=== PATIENT | female | born 1980 | race Caucasian/White ===

== ENCOUNTER 2017-01-03 23:40 | Emergency (ER) | payer BC, MEDICAID ==
[~2017-01-03] VITALS: Ht 160 cm; Wt 70.0 kg
[~2017-01-03 23:40] MED LIST: IOHEXOL-300 100 ML BOTTLE ONE; SODIUM CHLORIDE 0.9% 10ML VIAL ONE
[2017-01-04] MEDS ORDERED: MORPHINE SULFATE 4 MG/ML CPJ (NOT FOR IM USE) IV STA (00:36)
[2017-01-04] MEDS ORDERED: ONDANSETRON HCL 4MG/2ML VIAL IV STA (00:36)
[2017-01-04] MEDS ORDERED: SODIUM CHLORIDE 0.9% 1,000 ML IV ONE (00:36)
[2017-01-04 00:58] LABS: CLARITY URINE CLEAR (CLEAR); COLOR URINE YELLOW (YELLOW); GLUCOSE URINE NEGATIVE (NEGATIVE); KETONES URINE NEGATIVE (NEGATIVE); LEUKOCYTE ESTERASE URINE NEGATIVE (NEGATIVE); NITRITE URINE NEGATIVE (NEGATIVE); OCCULT BLOOD URINE 3+ (NEGATIVE); PROTEIN URINE TRACE (NEGATIVE); SPECIFIC GRAVITY URINE 1.028 (1.005-1.030); UROBILINOGEN URINE 0.2 E.U./dL (0.2-1.0)
[2017-01-04 01:02] LABS: BASOPHILS % 0.7 % (0.0-2.0); EOSINOPHILS % 0.2 % (0.0-5.0); HEMATOCRIT. 38.4 % (36.0-48.0); MEAN CORPUSCULAR VOLUME 84.7 fL (81.0-99.0); MEAN PLATELET VOLUME 10.2 fl (7.4-10.4); MONOCYTES % 6.1 % (2.0-8.0); PLATELET 152 x1000/uL (130-400); RED BLOOD CELL COUNT 4.53 mill/uL (4.2-5.4); RED CELL DISTRIBUTION WIDTH 14.2 % (11.6-14.6); WHITE BLOOD COUNT 14.6 x1000/uL (4.5-11.0)
[2017-01-04 01:06] LABS: CHLORIDE 106 mEq/L (98-107); INDEX ICTERIC 2 (1-4); INDEX LIPEMIC 4 (1-3)
[2017-01-04 01:15] LABS: ALBUMIN 3.5 g/dL (3.4-5.0); ANION GAP 17; CARBON DIOXIDE 21 mEq/L (21-32); LIPASE 81 IU/L (73-393); eGFR > 60 mL/min (>60)
[2017-01-04 01:16] LABS: CALCIUM 7.4 mg/dL (8.5-10.1); UREA NITROGEN BLOOD 14 mg/dL (7-21)
[2017-01-04 01:17] LABS: INDEX HEMOLYSI 5 (1-3)
[2017-01-04 01:22] LABS: DIFFERENTIAL COMMENT 1; HEMOGLOBIN. 13.5 g/dL (12.0-16.0); MEAN CORPUSCULAR HEMOGLOBIN 29.7 pg (28.0-32.0)
[2017-01-04 01:23] LABS: MEAN CORPUSCULAR HGB CONC 34.5 g/dL (31.0-37.0)
[2017-01-04 01:37] LABS: ALANINE AMINOTRANSFERASE 34 IU/L (13-61)
[2017-01-04 01:55] LABS: PARTIAL THROMBOPLASTIN TIME 24.7 sec (24.0-34.0); PROTHROMBIN TIME 10.6 sec
[2017-01-04 02:08] LABS: BACTERIA URINE NONE SEEN; RBC URINE 0-2 /hpf (0-2); SQUAMOUS EPITHELIAL CELL URINE FEW /lpf (RARE/1+); WBC URINE 0-2 /hpf (0-2)
[2017-01-04] MEDS ORDERED: KETOROLAC 30MG/ML VIAL IV ONE (04:45)
[2017-01-04 05:50] VITALS: BP 133/79
[2017-01-04] MEDS ORDERED: ONDANSETRON 4MG ODT PO NR (06:00)
== END 2017-01-04 07:09 | disposition home or self-care (01) ==
LOC: EDUNIT# 23:40 → ER 23:43
DX: N20.0 Calculus of kidney (principal)
CPT/HCPCS: 36415; 74177; 80053; 81001; 81025; 83690; 85025; 85610; 85730; 96361; 96374; 96375; 99285; A4216; J1885; J2270; J2405; J7030; Q0162; Q9967; Z7610

== ENCOUNTER 2017-02-19 02:11 | Emergency (ER) | payer BC ==
[~2017-02-19] VITALS: Ht 157.5 cm; Wt 72.7 kg
[2017-02-19] MEDS ORDERED: ONDANSETRON HCL 4MG/2ML VIAL IV STA (02:56)
[2017-02-19] MEDS ORDERED: SODIUM CHLORIDE 0.9% 1,000 ML IV ONE (02:56)
[2017-02-19] MEDS ORDERED: KETOROLAC 30MG/ML VIAL IV STA (02:56)
[2017-02-19] MEDS ORDERED: MORPHINE SULFATE 4 MG/ML CPJ (NOT FOR IM USE) IV STA (02:56)
[2017-02-19 03:14] LABS: BASOPHILS % 0.7 % (0.0-2.0); EOSINOPHILS % 0.2 % (0.0-5.0); HEMATOCRIT. 37.6 % (36.0-48.0); LYMPHOCYTES % 17.1 % (20.0-50.0); MEAN CORPUSCULAR VOLUME 85.3 fL (81.0-99.0); MEAN PLATELET VOLUME 9.7 fl (7.4-10.4); MONOCYTES % 5.8 % (2.0-8.0); NEUTROPHILS % 76.2 % (40.0-76.0); PLATELET 139 x1000/uL (130-400); RED CELL DISTRIBUTION WIDTH 13.9 % (11.6-14.6); WHITE BLOOD COUNT 13.7 x1000/uL (4.5-11.0)
[2017-02-19 03:27] LABS: INR 1.1
[2017-02-19 03:28] LABS: HCG SCREEN NEGATIVE
[2017-02-19 03:37] LABS: DIFFERENTIAL COMMENT 1; HEMOGLOBIN. 12.5 g/dL (12.0-16.0)
[2017-02-19 03:38] LABS: MEAN CORPUSCULAR HEMOGLOBIN 29.2 pg (28.0-32.0); MEAN CORPUSCULAR HGB CONC 33.9 g/dL (31.0-37.0)
[2017-02-19 03:47] LABS: ALBUMIN 3.7 g/dL (3.4-5.0); ANION GAP 14; CALCIUM 7.9 mg/dL (8.5-10.1); CARBON DIOXIDE 22 mEq/L (21-32); CHLORIDE 110 mEq/L (98-107); UREA NITROGEN BLOOD 17 mg/dL (7-21); eGFR > 60 mL/min (>60)
[2017-02-19 03:48] LABS: LIPASE 95 IU/L (73-393)
[2017-02-19 03:59] VITALS: BP 127/79
[2017-02-19 04:22] LABS: CLARITY URINE CLEAR (CLEAR); COLOR URINE YELLOW (YELLOW); GLUCOSE URINE NEGATIVE (NEGATIVE); KETONES URINE NEGATIVE (NEGATIVE); LEUKOCYTE ESTERASE URINE NEGATIVE (NEGATIVE); NITRITE URINE NEGATIVE (NEGATIVE); OCCULT BLOOD URINE 3+ (NEGATIVE); PH URINE 5.5 (4.5-8.0); PROTEIN URINE TRACE (NEGATIVE); SPECIFIC GRAVITY URINE 1.028 (1.005-1.030); UROBILINOGEN URINE 0.2 E.U./dL (0.2-1.0)
[2017-02-19 04:30] LABS: INDEX HEMOLYSI 4 (1-3)
[2017-02-19 04:36] LABS: ALANINE AMINOTRANSFERASE 24 IU/L (13-61)
[2017-02-19 05:08] LABS: SQUAMOUS EPITHELIAL CELL URINE 1+ /lpf (RARE/1+)
[2017-02-19 05:10] LABS: BACTERIA URINE 1+
== END 2017-02-19 05:45 | disposition home or self-care (01) ==
LOC: ER 02:12
DX: K80.20 Calculus of gallbladder without cholecystitis without obstruction (principal); N20.0 Calculus of kidney; R11.2 Nausea with vomiting, unspecified; Z87.442 Personal history of urinary calculi
CPT/HCPCS: 36415; 74176; 80053; 81001; 83690; 84703; 85025; 85610; 96361; 96374; 96375; 99285; J1885; J2270; J2405; J7030; Z7610